=== PATIENT | male | born 2000 | race Two or more races ===

== ENCOUNTER 2024-10-19 23:59 | Emergency (ER) | payer OTHER ==
[~2024-10-19] VITALS: Ht 170.2 cm; Wt 79.4 kg
[2024-10-20] MEDS ORDERED: LYRICA20 MG/1 ML PO (00:38)
[2024-10-20] MEDS ORDERED: TRAMADOL HCL E100 M1 PO (00:38)
[2024-10-20] MEDS ORDERED: PROMETHAZINE HCL 50 MG/ML AMPUL IM STA (01:39)
[2024-10-20] MEDS ORDERED: FAMOTIDINE/PF 20 MG/2 ML VIAL IV PUSH STA (01:40)
[2024-10-20] MEDS ORDERED: 0.9 % SODIUM CHLORIDE 1,000 ML IV STA (01:41)
[2024-10-20] MEDS ORDERED: PROMETHAZINE HCL 50 MG/ML AMPUL IM ONE (01:43)
[2024-10-20] MEDS ORDERED: FAMOTIDINE/PF 20 MG/2 ML VIAL ONE (01:43)
[2024-10-20 02:27] LABS: BASO % 0.5 % (0.1-1.2); EOS # 0.37 (0.04-0.54); EOS % 2.1 % (0.7-7.0); HEMATOCRIT 42.7 % (40.1-51.0); HEMOGLOBIN 14.1 g/dL (13.7-17.5); LYMPH % 8.7 % (19.3-53.1); MONO # 0.89 (0.24-0.82); MONO % 5.2 % (4.7-12.5); NEUT # 14.25 (1.56-6.13); NEUT % 82.7 % (34.0-71.1); PLATELET COUNT 277 K/uL (163-369); RED BLOOD COUNT 5.03 M/uL (4.63-6.08); RED CELL DISTRIBUTION WIDTH 13.9 % (11.6-14.4)
[2024-10-20 02:34] LABS: INR 1.12; PROTHROMBIN TIME 12.1 SECONDS (9.0-11.5)
[2024-10-20 02:38] LABS: ALBUMIN 3.2 gm/dL (3.4-5.0); BILIRUBIN TOTAL 0.31 mg/dL (0.3-1.2); BILIRUBIN,CONJUGATED 0.1 mg/dL (0.0-0.2); BILIRUBIN,UNCONJUGATED 0.21 mg/dL (0.0-0.6); CALCIUM 9.3 mg/dL (8.5-10.1); CREATININE SERUM 0.84 mg/dL (0.70-1.30); GFR 113.23; GLOBULINA 4.5 G/DL (2.4-3.5); POTASSIUM 3.62 mEq/L (3.5-5.1); TOTAL PROTEIN 7.7 gm/dL (6.4-8.2)
[2024-10-20 04:28] LABS: PH,URINE 5.5 (5.0-8.0); URINE APPEARANCE Clear; URINE BILIRRUBIN Negative (NEGATIVE); URINE BLOOD Small; URINE COLOR Yellow; URINE GLUCOSE Negative (NEGATIVE); URINE KETONE 15 (NEGATIVE); URINE LEUKOCYTE Negative; URINE NITRATE Negative; URINE PROTEIN Negative (NEGATIVE); URINE UROBILINOGEN 0.2 E.U./dl
[2024-10-20 04:31] LABS: URINE BACTERIA 7.3 uL (0.0-1933); URINE WBC 2.2 uL (0.0-23.2)
[2024-10-20 04:34] LABS: URINE EPITHELIAL CELLS 0.9 uL (0.0-38.8)
[2024-10-20 07:12] LABS: BASO % 0.5 % (0.1-1.2); EOS # 0.56 (0.04-0.54); EOS % 3.2 % (0.7-7.0); HEMATOCRIT 37.5 % (40.1-51.0); HEMOGLOBIN 12.3 g/dL (13.7-17.5); LYMPH # 1.85 (1.18-3.74); LYMPH % 10.4 % (19.3-53.1); MEAN CORPUSCULAR HEMOGLOBIN 27.9 pg (25.6-32.2); MONO # 1.07 (0.24-0.82); NEUT # 14.03 (1.56-6.13); NEUT % 79.2 % (34.0-71.1); PLATELET COUNT 239 K/uL (163-369); RED BLOOD COUNT 4.41 M/uL (4.63-6.08); RED CELL DISTRIBUTION WIDTH 13.9 % (11.6-14.4)
[2024-10-20] MEDS ORDERED: BARIUM SULFATE 450 ML ORAL.SUSP PO ONE (07:30)
[2024-10-20] MEDS ORDERED: DIATRIZOATE MEGLUMINE, SODIUM 30 ML BOTTLE ONE (07:32)
[2024-10-20] MEDS ORDERED: DIATRIZOATE MEGLUMINE, SODIUM 30 ML BOTTLE PO STA (07:34)
== END 2024-10-20 12:19 | disposition left against medical advice (07) ==
LOC: ER 10-20 01:48
PROVIDERS: General Practice
DX: R10.13 Epigastric pain (principal); R10.9 Unspecified abdominal pain
CPT/HCPCS: 36415; 74177; 76700; Q9965